=== PATIENT | male | born 1960 | race Caucasian/White ===

== ENCOUNTER 2019-03-14 08:24 | Emergency (ER) | payer OTHER, SELFPAY ==
[2019-03-14 08:35] VITALS: BP 103/61; PULSE 91; RESP 16; TEMP 37.2; O2SAT 96
--- NOTE | 2019-03-14 08:40 | ED.URI ---
HPI - URI/Sore Throat General Chief Complaint: Upper Respiratory Infection Stated Complaint: cold/flu symptoms Time Seen by Provider: 03/14/19 08:44 Source: patient and family Mode of arrival: ambulatory History of Present Illness HPI Narrative: Patient presents with sinus pressure congestion and nasal drainage. Patient denies any sore throat states he does have a nonproductive cough. Patient denies any fever no shortness of breath no chest pain. Patient states he is taking [place] plus for his symptoms.Patient reports his symptoms started 10 days ago. MD elicited complaint: cough, rhinorrhea, nasal congestion and sinus pain Related Data Home Medications Medication Instructions Recorded Confirmed aspirin 81 mg PO DAILY 03/14/19 03/14/19 lisinopril 5 mg PO DAILY 03/14/19 03/14/19 rosuvastatin [Crestor] 20 mg PO DAILY 03/14/19 03/14/19 sertraline [Zoloft] 25 mg PO DAILY 03/14/19 03/14/19 sertraline [Zoloft] 50 mg PO DAILY 03/14/19 03/14/19 Allergies Allergy/AdvReac Type Severity Reaction Status Date / Time No Known Allergies Allergy Unverified 08/18/18 20:03 Review of Systems Review of Systems: Narrative: CONSTITUTIONAL: Denies fever, chills, or sweats. EYES: Denies visual changes, redness, or discharge. ENT: Denies sore throat, or otalgia. Reports nasal congestion and nonproductive cough CARDIOVASCULAR: Denies chest pain, palpitations, or edema. RESPIRATORY: Denies cough or dyspnea. GASTROINTESTINAL: Denies abdominal pain, nausea, vomiting, or diarrhea. GENITOURINARY: Denies dysuria or hematuria. SKIN: Denies rash or itching. MUSCULOSKELETAL: Denies back pain, joint pain, or myalgia. NEUROLOGIC: Denies headache, numbness, or weakness. PSYCHIATRIC: Denies anxiety or depression. All systems reviewed & are unremarkable except as noted in HPI and below PMFSH Family History Family History Father Family history of glaucoma Hypertension Family history of lung cancer Mother Hypertension Asthma Family history of allergic disorder Social History Social History Alcohol intake: never Comments At time of signature, agree with nursing past medical, surgical, social and family history. There is no relevant family history pertinent to the presenting complaint Exam Narrative: Exam Narrative: GENERAL: Well-appearing, well-nourished, and in no acute distress. HEAD: Normocephalic, atraumatic. EYES: PERRLA and EOMI. ENT: no epistaxis. Mucous membranes moist. Moderate frontal sinus pressure moderate amount of postnasal drainage bilateral TM dullness mild pharyngeal drainage NECK: Supple. CHEST: Clear to auscultation. No respiratory distress. HEART: Regular rate and rhythm. No murmur heard. Normal peripheral pulses. ABDOMEN: Soft, nontender, nondistended, normal active bowel sounds. EXTREMITIES: Normal range of motion. No edema. SKIN: Warm, dry, no rash. NEURO: No focal deficits. Alert and oriented x3. Ameena Coma Scale Eye Opening: Spontaneous 4 Ameena Coma Scale Motor: Obeys Commands 6 Ameena Coma Scale Verbal: Oriented 5 Ameena Coma Scale Total 15 Course Vital Signs Vital signs: Vital Signs Temperature 37.2 C 03/14/19 08:35 Pulse Rate 91 03/14/19 08:35 Respiratory Rate 16 03/14/19 08:35 Blood Pressure 103/61 03/14/19 08:35 Pulse Oximetry 96 03/14/19 08:35 Temperature 37.2 C 03/14/19 08:35 Pulse Rate 91 03/14/19 08:35 Respiratory Rate 16 03/14/19 08:35 Blood Pressure 103/61 03/14/19 08:35 Pulse Oximetry 96 03/14/19 08:35 MDM - URI/Sore Throat Differential Diagnosis Differential diagnosis: Likely upper respiratory infection, otitis media, sinusitis, viral infection, bronchitis and pharyngitis Critical Care Time Critical Care Time Critical Care Time: No Discharge Plan Discharge Clinical Impression: Bronchitis Sinusitis Qualifiers: Si
== END 2019-03-14 08:54 | disposition home or self-care (01) ==
PROVIDERS: Emergency Provider Nurse Practitioner Family
DX: J40 Bronchitis, not specified as acute or chronic (principal); J01.10 Acute frontal sinusitis, unspecified; I10 Essential (primary) hypertension; E78.00 Pure hypercholesterolemia, unspecified; G47.30 Sleep apnea, unspecified
CPT/HCPCS: 99213; G0463

== ENCOUNTER 2020-03-18 16:32 | Emergency (ER) | payer OTHER, SELFPAY ==
--- NOTE | 2020-03-18 16:38 | ED.SKABFB ---
HPI - Skin/Abscess/Foreign Bdy General Chief complaint: Extremity Problem,Nontraumatic Stated complaint: Infected Finger Time Seen by Provider: 03/18/20 16:39 Source: patient and RN notes reviewed History of Present Illness HPI narrative: Patient is a 59-year-old male who presents the urgent care with complaints of swelling in pain to the third digit of the left hand. Patient states it started approximately 5 days ago and he has been soaking it in Epson salts. Patient states he is also been cleaning it with peroxide and using Neosporin. States that he does not bite his nails but did clip the cuticle recently. No other acute complaints. No acute distress noted. Patient aware of the plan of care. Some parts of this dictation were generated by voice recognition software and may contain typographical and/or grammatical inaccuracies. Related Data Home Medications Medication Instructions Recorded Confirmed aspirin 81 mg PO DAILY 03/14/19 03/14/19 lisinopril 5 mg PO DAILY 03/14/19 03/14/19 rosuvastatin [Crestor] 20 mg PO DAILY 03/14/19 03/14/19 sertraline [Zoloft] 50 mg PO DAILY 03/14/19 03/14/19 Allergies Allergy/AdvReac Type Severity Reaction Status Date / Time No Known Allergies Allergy Unverified 08/18/18 20:03 Review of Systems Review of Systems: Narrative: CONSTITUTIONAL: Denies fever, chills, or sweats. EYES: Denies visual changes, redness, or discharge. ENT: Denies rhinorrhea, congestion, sore throat, or otalgia. CARDIOVASCULAR: Denies chest pain, palpitations, or edema. RESPIRATORY: Denies cough or dyspnea. GASTROINTESTINAL: Denies abdominal pain, nausea, vomiting, or diarrhea. GENITOURINARY: Denies dysuria or hematuria. SKIN: Reports of pain and swelling to the nailbed of third digit even left hand MUSCULOSKELETAL: Denies back pain, joint pain, or myalgia. NEUROLOGIC: Denies headache, numbness, or weakness. All other systems reviewed are negative, except as documented in HPI. ON LICENSE OF [facility] Family History Family History Father Family history of glaucoma Hypertension Family history of lung cancer Mother Hypertension Asthma Family history of allergic disorder Social History Social History Alcohol intake: never Comments At the time of my signature, I reviewed and agree with the nursing past medical, surgical, social, and family history. There is no relevant family history pertinent to the patient complaint. Exam Narrative: Exam Narrative: GENERAL: This is a well-nourished, well-developed patient, in no apparent distress. HEAD: normocephalic, atraumatic. EYES: PERRL. Sclera clear/white. Vision is grossly intact. EARS: External ears normal NOSE: External nose normal with no obvious nasal discharge, nares without redness, no rhinorrhea. THROAT: Mucous membranes moist NECK: Neck supple SKIN: Fluid-filled paronychia noted to the radial aspect of the left third digit with mild surrounding erythema NEURO: awake, alert, and oriented to person, place and time. There were no obvious focal neurologic abnormalities. EXTREMITIES: No clubbing, cyanosis, or edema. Positive strong left radial pulse with capillary refill less than 2 seconds to left upper extremity. Course Vital Signs Vital signs: Vital Signs Temperature 99 F 03/18/20 16:48 Pulse Rate 73 03/18/20 16:48 Respiratory Rate 16 03/18/20 16:48 Blood Pressure 119/68 03/18/20 16:48 Pulse Oximetry 99 03/18/20 16:48 Temperature 99 F 03/18/20 16:48 Pulse Rate 73 03/18/20 16:48 Respiratory Rate 16 03/18/20 16:48 Blood Pressure 119/68 03/18/20 16:48 Pulse Oximetry 99 03/18/20 16:48 Reviewed Procedures Other Procedure Procedure 1: Other Procedure: Drained paronychia to the radial aspect of the left third digit. Cleansed with Betadine, 18-gauge needle used, technic care/normal saline post procedure. Thick white to yellow dr
[2020-03-18 16:48] VITALS: BP 119/68; PULSE 73; RESP 16; TEMP 37.2; O2SAT 99
== END 2020-03-18 17:10 | disposition home or self-care (01) ==
PROVIDERS: Emergency Provider Nurse Practitioner Family
DX: L03.012 Cellulitis of left finger (principal); Z86.73 Personal history of transient ischemic attack (TIA), and cerebral infarction without residual deficits; E78.00 Pure hypercholesterolemia, unspecified; I10 Essential (primary) hypertension; G47.30 Sleep apnea, unspecified; F41.9 Anxiety disorder, unspecified
CPT/HCPCS: 10060; 99213; G0463

== ENCOUNTER 2020-10-16 16:23 | Emergency (ER) | payer OTHER, SELFPAY ==
[2020-10-16 16:28] VITALS: BP 112/68; PULSE 97; RESP 16; TEMP 36.1; O2SAT 96
--- NOTE | 2020-10-16 16:30 | ED.WOUNDLAC ---
HPI - Wound/Laceration General Chief Complaint: Extremity Injury, Upper Stated Complaint: Injury to right Hand Time Seen by Provider: 10/16/20 16:30 Source: patient and RN notes reviewed History of Present Illness HPI narrative: Patient is a 60-year-old male who presents the urgent care with complaints of a puncture wound to the right hand. Patient states that he drilled a Fleming head drill bit into the web of his right hand. Patient states it just happened prior to arrival. Patient is not up-to-date on his tetanus shot. No other acute complaints. No acute distress noted. Patient had a plan of care. Some parts of this dictation were generated by voice recognition software and may contain typographical and/or grammatical inaccuracies. Related Data Home Medications Medication Instructions Recorded Confirmed aspirin 81 mg PO DAILY 03/14/19 03/14/19 lisinopril 5 mg PO DAILY 03/14/19 03/14/19 rosuvastatin [Crestor] 20 mg PO DAILY 03/14/19 03/14/19 sertraline [Zoloft] 50 mg PO DAILY 03/14/19 03/14/19 Allergies Allergy/AdvReac Type Severity Reaction Status Date / Time No Known Allergies Allergy Verified 10/16/20 16:35 Review of Systems Review of Systems: CONSTITUTIONAL: Denies fever, chills, or sweats. EYES: Denies visual changes, redness, or discharge. ENT: Denies rhinorrhea, congestion, sore throat, or otalgia. CARDIOVASCULAR: Denies chest pain, palpitations, or edema. RESPIRATORY: Denies cough or dyspnea. GASTROINTESTINAL: Denies abdominal pain, nausea, vomiting, or diarrhea. GENITOURINARY: Denies dysuria or hematuria. SKIN: Reports of a puncture wound to the right hand MUSCULOSKELETAL: Denies back pain, joint pain, or myalgia. NEUROLOGIC: Denies headache, numbness, or weakness. All other systems reviewed are negative, except as documented in HPI. [facility] Family History Family History Father Family history of glaucoma Hypertension Family history of lung cancer Mother Hypertension Asthma Family history of allergic disorder Social History Social History Alcohol intake: never Comments At the time of my signature, I reviewed and agree with the nursing past medical, surgical, social, and family history. There is no relevant family history pertinent to the patient complaint. Exam Narrative: GENERAL: This is a well-nourished, well-developed patient, in no apparent distress. HEAD: normocephalic, atraumatic. EYES: PERRL. Sclera clear/white. Vision is grossly intact. EARS: External ears normal NOSE: External nose normal with no obvious nasal discharge, nares without redness, no rhinorrhea. THROAT: Mucous membranes moist NECK: Neck supple CARDIOVASCULAR: Regular rate and rhythm without murmurs, gallops, or rubs. RESPIRATORY: Clear to auscultation. Breath sounds equal bilaterally. No wheezes, rales, or rhonchi. SKIN: Puncture wound noted to the thenar eminence of the right hand. Warm, intact with no suspicious lesions or rash, good texture and turgor. NEURO: awake, alert, and oriented to person, place and time. There were no obvious focal neurologic abnormalities. EXTREMITIES: No clubbing, cyanosis, or edema. Positive strong right radial pulse with capillary refill less than 2 seconds. Range of motion to right upper extremity within normal limits. Course Vital Signs Vital signs: Vital Signs Temperature 97 F L 10/16/20 16:28 Pulse Rate 97 10/16/20 16:28 Respiratory Rate 16 10/16/20 16:28 Blood Pressure 112/68 10/16/20 16:28 Pulse Oximetry 96 10/16/20 16:28 Temperature 97 F L 10/16/20 16:28 Pulse Rate 97 10/16/20 16:28 Respiratory Rate 16 10/16/20 16:28 Blood Pressure 112/68 10/16/20 16:28 Pulse Oximetry 96 10/16/20 16:28 Reviewed MDM - Wound/Laceration MDM Narrative Medical decision making narrative: You are now up-to-date on your tetanus shot. Make sure to
[2020-10-16] MEDS: TETANUS,DIPHTHERIA,AC PERTUSSIS ADULT (0.5 ML) BOOSTRIX IM (16:40)
== END 2020-10-16 17:00 | disposition home or self-care (01) ==
PROVIDERS: Emergency Provider Nurse Practitioner Family
DX: S61.431A Puncture wound without foreign body of right hand, initial encounter (principal); W29.8XXA Contact with other powered hand tools and household machinery, initial encounter; Z23 Encounter for immunization; Z86.73 Personal history of transient ischemic attack (TIA), and cerebral infarction without residual deficits; I10 Essential (primary) hypertension; G47.30 Sleep apnea, unspecified
CPT/HCPCS: 90471; 90715; 99212; G0463

== ENCOUNTER 2022-06-15 17:24 | Emergency (ER) | payer OTHER, SELFPAY ==
[2022-06-15 17:29] VITALS: BP 128/68; PULSE 75; RESP 16; TEMP 37.1; O2SAT 97
--- NOTE | 2022-06-15 18:01 | ED.URI ---
HPI - URI/Sore Throat General Chief Complaint: Upper Respiratory Infection Stated Complaint: cold cough Time Seen by Provider: 06/15/22 18:00 Source: patient and RN notes reviewed Mode of arrival: ambulatory Limitations: no limitations History of Present Illness HPI Narrative: 62-year-old male presents with concern for cough that is persistent and he has coughing fits. He reports symptoms started on Monday. He reports some nasal congestion and rhinorrhea. He denies fever, aches, chills, sweats MD elicited complaint: cough Related Data Home Medications Medication Instructions Recorded Confirmed aspirin 81 mg chewable tablet 81 mg PO DAILY 03/14/19 06/15/22 lisinopril 5 mg tablet 5 mg PO DAILY 03/14/19 06/15/22 sertraline 50 mg tablet (Zoloft) 50 mg PO DAILY 03/14/19 06/15/22 levothyroxine 125 mcg tablet 125 mcg PO DAILY 06/15/22 06/15/22 (Synthroid) rosuvastatin 10 mg tablet 10 mg PO DAILY 06/15/22 06/15/22 Allergies Allergy/AdvReac Type Severity Reaction Status Date / Time No Known Allergies Allergy Verified 06/15/22 17:44 Review of Systems Review of Systems: CONSTITUTIONAL: Denies malaise, chills, sweats, or fever. EYES: Denies visual changes, redness, or discharge. ENT: Reports rhinorrhea, congestion. Denies sinus pain, otalgia and sore throat. CARDIOVASCULAR: Denies chest pain, palpitations, or edema. RESPIRATORY: Reports persistent cough. Denies dyspnea. GASTROINTESTINAL: Denies abdominal pain, nausea, vomiting, diarrhea SKIN: Denies rash or itching. MUSCULOSKELETAL: Denies myalgia. NEUROLOGIC: Denies headache. All systems reviewed & are unremarkable except as noted in HPI and below PMFSH Family History Family History Father Family history of glaucoma Hypertension Family history of lung cancer Mother Hypertension Asthma Family history of allergic disorder Social History Social History Alcohol intake: never Comments At time of signature, agree with nursing past medical, surgical, social and family history. There is no relevant family history pertinent to the presenting complaint Exam Narrative: GENERAL: Well-appearing, well-nourished, and in no acute distress. HEAD: Normocephalic EYES: PERRLA, conjunctivae clear ENT: Nares clear, turbinates edematous and erythematous. Mucous membranes moist. TM pearly paredes with sharp light reflex bilaterally; no tragal tenderness. Oropharynx not erythematous without lesions. Tonsils not enlarged and without exudate, no drooling, no hoarseness, no trismus, uvula midline. NECK: Supple. No lymphadenopathy CHEST: Scattered rhonchi, otherwise clear to auscultation, breath sounds equal. No wheezing, rales, or stridor. No respiratory distress, speaks in full sentences. Harsh cough noted HEART: Regular rate and rhythm. No murmur heard. SKIN: Warm, dry, no rash. NEURO: Alert and oriented x3. PSYCH: Normal mood and affect Course Course Emergency Course: Patient is aware of diagnosis, understands and agrees to treatment plan. Anticipatory guidance given. Patient agrees to follow-up as directed and is aware of reasons to seek care at the emergency department. Portions of this record may have been created with voice recognition software Level of Care: Express Care Visit Vital Signs Vital signs: Vital Signs Temperature 98.7 F 06/15/22 17:29 Pulse Rate 75 06/15/22 17:29 Respiratory Rate 16 06/15/22 17:29 Blood Pressure 128/68 06/15/22 17:29 Pulse Oximetry 97 06/15/22 17:29 Oxygen Delivery Room Air 06/15/22 17:29 Temperature 98.7 F 06/15/22 17:29 Pulse Rate 75 06/15/22 17:29 Respiratory Rate 16 06/15/22 17:29 Blood Pressure 128/68 06/15/22 17:29 Pulse Oximetry 97 06/15/22 17:29 Oxygen Delivery Room Air 06/15/22 17:29 Reviewed. MDM - URI/Sore Throat MDM Narrative Medical decision making jerzy
== END 2022-06-15 18:15 | disposition home or self-care (01) ==
PROVIDERS: Emergency Provider Nurse Practitioner
DX: J06.9 Acute upper respiratory infection, unspecified (principal); E78.00 Pure hypercholesterolemia, unspecified; I10 Essential (primary) hypertension; G47.30 Sleep apnea, unspecified; Z86.73 Personal history of transient ischemic attack (TIA), and cerebral infarction without residual deficits; F41.9 Anxiety disorder, unspecified
CPT/HCPCS: 99213; G0463

== ENCOUNTER 2024-02-19 12:17 | Emergency (ER) | payer OTHER, SELFPAY ==
[2024-02-19 12:22] VITALS: BP 131/74; PULSE 77; RESP 20; TEMP 36.7; O2SAT 100
--- NOTE | 2024-02-19 12:30 | ED.URI ---
HPI - URI/Sore Throat General Chief Complaint: Upper Respiratory Infection Stated Complaint: cold symptoms Time Seen by Provider: 02/19/24 12:30 Source: patient and RN notes reviewed Mode of arrival: ambulatory Limitations: no limitations History of Present Illness HPI Narrative: 63-year-old male presented for complaint of nasal congestion, drainage, and cough. Onset 3 days. endorses subjective fever, chills body aches yesterday. Taking [place] for symptoms. Denies shortness of breath, wheezing nausea, vomiting or lethargy MD elicited complaint: cough Related Data Home Medications ?Medication ?Instructions ?Recorded ?Confirmed ?Last Taken ?Type aspirin 81 mg chewable tablet 81 mg PO DAILY 03/14/19 06/15/22 Unknown History lisinopril 5 mg tablet 5 mg PO DAILY 03/14/19 06/15/22 Unknown History sertraline 50 mg tablet (Zoloft) 50 mg PO DAILY 03/14/19 06/15/22 Unknown History levothyroxine 125 mcg tablet 125 mcg PO DAILY 06/15/22 06/15/22 Unknown History (Synthroid) rosuvastatin 10 mg tablet 10 mg PO DAILY 06/15/22 06/15/22 Unknown History Allergies Allergy/AdvReac Type Severity Reaction Status Date / Time No Known Allergies Allergy Verified 02/19/24 12:26 Review of Systems Review of Systems: CONSTITUTIONAL: Endorses malaise, chills, sweats, fever EYES: Denies visual changes, redness, or discharge ENT: Reports rhinorrhea, congestion, sinus pain, denies otalgia, sore throat CARDIOVASCULAR: Denies chest pain, palpitations, edema RESPIRATORY: Reports cough, post nasal drainage. Denies dyspnea GASTROINTESTINAL: Denies abdominal pain, nausea, vomiting, diarrhea SKIN: Denies rash MUSCULOSKELETAL: Endorses myalgia PMFSH Past Medical History Medical History (Updated 02/19/24 @ 12:40 by Juani Tam APRN) CVA (cerebral vascular accident) Family History Family History Father Family history of glaucoma Hypertension Family history of lung cancer Mother Hypertension Asthma Family history of allergic disorder Social History Social History (Updated 02/19/24 @ 12:36 by Juani Tam APRN) Smoking status: Former smoker Alcohol intake: never Exam Narrative: GENERAL: mildly Ill-appearing, nontoxic no acute distress. EYES: PERRLA, conjunctivae clear ENT: Mucous membranes moist. TM pearly paredes with dull light reflex bilaterally; no tragal tenderness. Oropharynx not erythematous without lesions or exudate, no drooling, no hoarseness, no trismus, uvula midline. No tripod positioning, muffled voice, soft palate or pharyngeal wall bulging NECK: Supple. No lymphadenopathy CHEST: Clear to auscultation, breath sounds equal. No wheezing, rhonchi, rales, or stridor. No respiratory distress, speaks in full sentences. HEART: Regular rate and rhythm. No murmur heard. SKIN: Warm, dry NEURO: Alert and oriented x3. PSYCH: Normal mood and affect Course Course Emergency Course: Patient is aware of diagnosis, understands and agrees to treatment plan. Anticipatory guidance given. Patient agrees to follow-up as directed and is aware of reasons to seek care at the emergency department. Portions of this record may have been created with voice recognition software Level of Care: Express Care Visit Vital Signs Vital signs: Vital Signs Temperature 98.0 F 02/19/24 12:22 Pulse Rate 77 02/19/24 12:22 Respiratory Rate 20 02/19/24 12:22 Blood Pressure 131/74 02/19/24 12:22 Pulse Oximetry 100 02/19/24 12:22 Oxygen Delivery Room Air 02/19/24 12:22 Temperature 98.0 F 02/19/24 12:22 Pulse Rate 77 02/19/24 12:22 Respiratory Rate 20 02/19/24 12:22 Blood Pressure 131/74 02/19/24 12:22 Pulse Oximetry 100 02/19/24 12:22 Oxygen Delivery Room Air 02/19/24 12:22 reviewed MDM - URI/Sore Throat MDM Narrative Medical decision making narrative: Discussed physical exam findings, negative flu and COVID reviewed with patient. Advised supportive measures and signs/symptoms to go to the ER. Pt is appropriate for outpt treatment and f/u. Differential Diagnosis Differential diagnosis: Likely upper respiratory infection, sinusitis and viral infection Discharge Plan Discharge Clinical Impression: Upper respiratory infection Patient Disposition: Home, Self-Care Condition: Stable Instructions: Antibiotic Form, Upper Respiratory Infection (ED) Additional Instructions: flu and COVID negative if symptoms are due to a viral illness, it is not treated with antibiotics. Viral symptoms can be present for up to 10-14 days. Recommendations: Flonase spray and Zyrtec for sinus congestion Cough syrup may cause drowsiness; avoid driving or take it at night time. Coricidin HBP if you have hypertension Tylenol every 8 hours as needed for pain/fever Soft foods, cool liquids, warm tea. Gargle with warm saltwater twice a day. Chloraseptic spray and throat lozenges. Rest and stay hydrated. --Follow up with your PCP --Go to the ER immediately if you cannot swallow your saliva, trouble breathing/wheezing, throat swelling, pain is persistent and severe Patient Language: Zambian Prescriptions: No Action rosuvastatin 10 mg tablet 10 mg PO DAILY levothyroxine [Synthroid] 125 mcg tablet 125 mcg PO DAILY promethazine-DM 6.25-15 mg/5 mL syrup 5 ml PO Q4-6H PRN (Reason: cough) Qty: 120 0RF azithromycin [Zithromax Z-Gerald] 250 mg tablet See Rx Instructions .ROUTE .COMPLEX Qty: 6 0RF Rx Instructions: take 500 mg today (day 1), then 250 mg for 4 days (days 2-5) methylprednisolone [Medrol (Gerald)] 4 mg tablets,dose pack See Rx Instructions .ROUTE .COMPLEX Qty: 21 0RF Rx Instructions: orally per package directions lisinopril 5 mg Tablet 5 mg PO DAILY sertraline [Zoloft] 50 mg Tablet 50 mg PO DAILY aspirin 81 mg Tablet,Chewable 81 mg PO DAILY Follow-up/Referrals: PHYSICIAN NOT ON STAFF,NONSTAFF [Primary Care Provider] - Time of Disposition: 12:41
[2024-02-19 12:46] LABS: EDCOVIDSCREEN Negative (Negative); EDINFLUASCREEN Negative (Negative); EDINFLUBSCREEN Negative (Negative)
== END 2024-02-19 12:45 | disposition home or self-care (01) ==
PROVIDERS: Emergency Provider Nurse Practitioner Family
DX: J06.9 Acute upper respiratory infection, unspecified (principal); Z20.822 Contact with and (suspected) exposure to COVID-19; Z86.73 Personal history of transient ischemic attack (TIA), and cerebral infarction without residual deficits
CPT/HCPCS: 87426; 87804; 99212; G0463

== ENCOUNTER 2024-08-10 18:22 | Emergency (ER) | payer OTHER, SELFPAY ==
--- OUTSIDE RECORDS SUMMARY | 2024-08-10 18:26 | XMS_ITS | Clinical Summary ---
Author Organization [facility] Address [address] [place] [address] Care Team Providers Care Asbestos Worker Name Role Phone Franklyn BARROW MD, Jordan Johnson Primary Care Provider Source Comments [facility],non-owned Affiliates and Associated Physician Practices is amultiple site organization consisting of ambulatory clinics and hospital sitesin [place], [place], [place] and [place]. This disclosure is being madepursuant to the Care Everywhere program and may not contain all information available regarding this patient. Last updated 17.[facility] Social History Tobacco Use Types Packs/Day Years Used Date Smoking Tobacco: Never Assessed Sex and Gender Information Value Date Recorded Sex Assigned at Not on file Legal Sex Male 1:40 PM CDT Gender Identity Not on file Sexual Orientation Not on file Plan of Treatment Health Maintenance Due Date Last Done Comments COLOGUARD (AGES 45-75) - COL ON CA SCREENING 1962 COLON MONITORING 1962 COLONOSCOPY - COLON CA SCREENING 1962 CT COLONOGRAPHY - COLON CA SCREENING 1962 Colorectal Cancer Screening 1962 FIT - COLON CA SCREENING 1962 FLEX SIG - COLON CA SCREENING 1962 LIPID TESTING 1962 HIV SCREENING 1977 HEPATITIS C SCREENING 06/02/1980 DTAP/TDAP/TD VACCINES (1 - Tdap) 1981 PNEUMOCOCCAL VACCINE 50+ (1 of 1 - PCV) 2012 ZOSTER VACCINE (1 of 2) 2012 COVID-19 VACCINE (1 - 2023-2 5 season) 2023 DEPRESSION SCREENING 02/07/2024 INFLUENZA VACCINE (#1) 2024 Respiratory Syncytial Virus (RSV) Vaccine Pt: or over 60 yrs (1 - 1-dose 75+ series) 2037 HEPATITIS B VACCINE Aged Out No longe r eligible based on patient's age to complete this topic HIB VACCINE Aged Out No longer eligi ble based on patient's age to complete this topic HPV VACCINE Aged Out No longer eligi ble based on patient's age to complete this topic MENINGOCOCCAL (Group B) VACC INE SHARED DECISION-MAKING Aged Out No longer eligibl e based on patient's age to complete this topic MENINGOCOCCAL GROUPS A/C/Y/W VACCINE Aged Out No longer eligible b ased on patient's age to complete this topic Insurance Care Teams Asbestos Worker Relationship Specialty Start Date End Date Jordan Estes II, MD PCP - General Family Medicine 05/03/18
--- OUTSIDE RECORDS SUMMARY | 2024-08-10 18:26 | XMS_ITS ---
Author Organization [facility] Address [address] [place], [place] [id number] Care Team Providers Care Warehouse Receiver Name Role Phone LISA MARTINEZ Unavailable [phone] Answer, Declined Unavailable Unavailable RIZWANA GRIMM Unavailable [phone] REASON FOR VISIT toenail fungus Encounters Encounter Location Date Provider Diagnosis [facility] [address] [place], [place] [id number] 01/23/2024 RIZWANA GRIMM Unspecified atherosclerosis of algaaciq arteries of extremities, bilateral legs I70.203 ; Tinea unguium B35.1 ; Other hammer toe(s) (acquired), right foot M20.41 ; Other hammer toe(s) (acquired), left foot M20.42 ; Pain in right toe(s) M79.674 and Pain in left toe(s) M79.675 Assessments Encounter Date Diagnosis (ICD Code) Assessment Notes Treatment Notes Treatment Clinical Notes Section Notes 01/23/2024 Unspecified atherosclerosis of algaaciq arteries of extremities, bilateral legs (ICD-10 - I70.203) Patient educated on risks and aggravating factors of PVD, including conservative treatment options such as a diet and exercise regimen to aid in slowing progression of vascular disease 01/23/2024 Tinea unguium (ICD-10 - B35.1) Aseptic debridement of elongated thickened nails x 10 using sterile nippers, nails were debrided in length and thickness by 30% utilizing a nail nipper without incident. The patient was educated regarding all treatment options that include topical and oral antifungal treatments. I discussed the options of taking a sample of the nail to confirm diagnosis. Nail clippings were not sent for pathology analysis. The patient was educated why and how the fungal infection evolved in their feet and the patient was given information regarding how to prevent further infection. The patient was told to keep feet dry and change socks. The patient was told to be careful with old shoes and excessive sweating. The patient was educated regarding both OTC and prescription treatments. 01/23/2024 Other hammer toe(s) (acquired), right foot (ICD-10 - M20.41) The patient was educated regarding how to mechanically stabilize their deformity. The patient was given education about shoe recommendations specific for the condition. The patient was educated about custom orthotics and how appropriate shoes and orthotics can prevent further worsening of the deformity. The patient was educated about how bad shoe habits can worsen the condition. NSAIDS, P.T., injections and other conservative treatments were discussed. Both surgical and non surgical treatments were discussed, but conservative options were emphasized. 01/23/2024 Other hammer toe(s) (acquired), left foot (ICD-10 - M20.42) 01/23/2024 Pain in right toe(s) (ICD-10 - M79.674) 01/23/2024 Pain in left toe(s) (ICD-10 - M79.675) Plan Of Treatment Treatment Notes Assessment Notes Unspecified atherosclerosis of algaaciq arteries of extremities, bilateral legs Patient educated on risks and aggravating factors of PVD, including conservative treatment options such as a diet and exercise regimen to aid in slowing progression of vascular disease Tinea unguium Aseptic debridement of elongated thickened nails x 10 using sterile nippers, nails were debrided in length and thickness by 30% utilizing a nail nipper without incident. The patient was educated regarding all treatment options that include topical and oral antifungal treatments. I discussed the options of taking a sample of the nail to confirm diagnosis. Nail clippings were not sent for pathology analysis. The patient was educated why and how the fungal infection evolved in their feet and the patient was given information regarding how to prevent further infection. The patient was told to keep feet dry and change socks. The patient was told to be careful with old shoes and excessive sweating. The patient was educated regarding both OTC and prescription treatments. Other hammer toe(s) (acquired), right fo ot The patient was educated regarding how to mechanically stabilize their deformity. The patient was given education about shoe recommendations specific for the condition. The patient was educated about custom orthotics and how appropriate shoes and orthotics can prevent further worsening of the deformity. The patient was educated about how bad shoe habits can worsen the condition. NSAIDS, P.T., injections and other conservative treatments were discussed. Both surgical and non surgical treatments were discussed, but conservative options were emphasized. Next Appt Details Follow Up: 3 Months, Reason: Provider Name:LISA MARTINEZ, 09:30:00 AM, [address] [facility], [facility] [address], [place], [place], [id number], Progress Notes * ALTON CR DDOB: [birth year] (64 yo M)Acc No.[id number]:01/23/2024 Patient: ALTON CALDERON Provider: Johnathon GRIMM :1960 A ge:63 Y S ex:Male Date:01/23/2024 Address:[address] [place] [address] Subjective: * Chief Complaints: * 1 . Toenail fungus. * HPI: H PI: Follow Up Visit P atient presents for follow up visit for fungal nails. , Patient states their problem is starting to come back. , MA: rui. * ROS: G eneral / Constitutional: Patient denies w eakness. R espiratory: Patient denies c hronic cough, shortness of breath, sputum production. C ardiovascular: Patient denies c hest pain, history of IA, irregular heartbeat. M usculoskeletal: Patient denies a rthritis, joint stiffness. ? P eripheral Vascular: Patient denies b lanching of skin, cold extremities, decreased sensation in extremities. S kin: Patient complains of n ail changes, fungal nails. ? N eurologic: Patient denies d izziness, gait abnormality, headache. * Medical History: Objective: * Vitals: * Examination: P hysical Examination: V ascular: Dorsalis Pedis pulse noted at 1/4 right foot and 1/4 left foot and Posterior Tibial pulse noted at 1/4 right foot and 1/4 left foot, Capillary refill times noted to be less than three seconds x ten, Temperature gradient noted to be warm to cool to bilateral foot, pedal hair present to bilateral foot and no varicosities are noted Dermatologic: there are no open lesions, no signs of active clinical infection, no erythema noted, no ecchymoses, nails are elongated thickened and dystrophic with subungual debris x ten Musculoskeletal: there is pain to palpation onto nail plate x ten, no calf pain noted bilaterally, arch height noted at 2/5 non-weight bearing bilaterally, first metatarsophalangeal joint range of motion 30 deg non-weight bearing bilaterally, flexible fifth digit hammer toe deformity noted to bilateral foot reducible with kelikian push up test Neurology: protective sensation intact to light touch bilateral digits one through five, vibratory sensation intact to first metatarsophalangeal joint bilaterally. Assessment: * Assessment: 1. T inea unguium - B35.1 (Primary) 2 . U nspecified atherosclerosis of algaaciq arteries of extremities, bilateral legs - I70.203 3 . O ther hammer toe(s) (acquired), right foot - M20.41 4 . O ther hammer toe(s) (acquired), left foot - M20.42 5 . P ain in right toe(s) - M79.674 6 . P ain in left toe(s) - M79.675 Plan: * Treatment: 2. U nspecified atherosclerosis of algaaciq arteries of extremities, bilateral legs Notes: Patient educated on risks and aggravating factors of PVD, including conservative treatment options such as a diet and exercise regimen to aid in slowing progression of vascular disease ? 3. O ther hammer toe(s) (acquired), right foot Notes: The patient was educated regarding how to mechanically stabilize their deformity. The patient was given education about shoe recommendations specific for the condition. The patient was educated about custom orthotics and how appropriate shoes and orthotics can prevent further worsening of the deformity. The patient was educated about how bad shoe habits can worsen the condition. NSAIDS, P.T., injections and other conservative treatments were discussed. Both surgical and non surgical treatments were discussed, but conservative options were emphasized. * Follow Up: 3 Months * Billing Information: * Visit Code: 18569 Office Visit, Est Pt., Level 3. * Procedure Codes: * Electronic signature of CRUZ GRIMM DPM on 08/10/2024 at 06:26 PM CDT Sign off status: Pending * Provider: Johnathon GRIMM Date: 1 03/25/2023 Generated for Adarsh Torre on: 0 08/10/2024 06:26 PM CDT History and Physical Notes * HPI (History of Present Illness) Category Sub-Category Detail Notes Category Not es HPI Follow Up Visit Patient presents for follow up visit for fungal nails. , Patient states their problem is starting to come back. , MA: beg Examination Category Sub-Category Detail Notes Category Not es Physical Examination Vascular: Dorsalis Pedis pulse noted at 1/4 right foot and 1/4 left foot and Posterior Tibial pulse noted at 1/4 right foot and 1/4 left foot, Capillary refill times noted to be less than three seconds x ten, Temperature gradient noted to be warm to cool to bilateral foot, pedal hair present to bilateral foot and no varicosities are noted Dermatologic: there are no open lesions, no signs of active clinical infection, no erythema noted, no ecchymoses, nails are elongated thickened and dystrophic with subungual debris x ten Musculoskeletal: there is pain to palpation onto nail plate x ten, no calf pain noted bilaterally, arch height noted at 2/5 non-weight bearing bilaterally, first metatarsophalangeal joint range of motion 30 deg non-weight bearing bilaterally, flexible fifth digit hammer toe deformity noted to bilateral foot reducible with kelikian push up test Neurology: protective sensation intact to light touch bilateral digits one through five, vibratory sensation intact to first metatarsophalangeal joint bilaterally
--- OUTSIDE RECORDS SUMMARY | 2024-08-10 18:26 | XMS_ITS | Patient Health Record ---
Author Organization [facility] Address [address] [place], [place] [id number] Care Team Providers Care Hay Stacker Name Role Phone LISA MARTINEZ Unavailable [phone] Answer, Declined Unavailable Unavailable RIZWANA GRIMM Unavailable [phone] Allergies No Known Allergies Reason For Referral Reason [facility] (Establishe d Patient) 01/22/2024 REF EXT +3 ( 6 TOTAL ) / PROVIDER UPDATED TO [facility] 02/20/2024 THE REFERRAL IS UNDER [facility] PER [facility] REFERRALS END 08/05/2024. K[facility] Diagnosis 1 Tinea unguium (B35.1 ) Referred Organization [facility] Referred Provider LISA MARTINEZ Referred Address [address],[place], [id number], Referred Provider Specialty Podiatry Referral Priority Routine Vital Signs Height-cm 172.72 cm 07/24/2024 Weight-kg 76.66 kg 07/24/2024 Height 68.00 in 07/24/2024 Weight 169 lbs 07/24/2024 BMI 25.69 kg/m2 07/24/2024 Encounters Encounter Location Date Provider Diagnosis [facility] [address] [place], [place] [id number] 01/23/2024 RIZWANA GRIMM Unspecified atherosclerosis of chicken [place] arteries of extremities, bilateral legs I70.203 ; Tinea unguium B35.1 ; Other hammer toe(s) (acquired), right foot M20.41 ; Other hammer toe(s) (acquired), left foot M20.42 ; Pain in right toe(s) M79.674 and Pain in left toe(s) M79.675 [facility] [place] [address] [facility] [address] [place], [place] [id number] 07/24/2024 LISA SNOOK Tinea unguium B35.1 ; Pain in right toe(s) M79.674 ; Pain in left toe(s) M79.675 and Type 2 diabetes mellitus with other diabetic neurological complication E11.49 [facility] [place] [address] [facility] [address] [place], [place] [id number] 04/23/2024 LISA SNOOK Tinea unguium B35.1 ; Type 2 diabetes mellitus without complications E11.9 ; Pain in right toe(s) M79.674 and Pain in left toe(s) M79.675 Assessments Encounter Date Diagnosis (ICD Code) Assessment Notes Treatment Notes Treatment Clinical Notes Section Notes 01/23/2024 Tinea unguium (ICD-10 - B35.1) Aseptic [...] regarding both OTC and prescription treatments. 01/23/2024 Unspecified atherosclerosis of [place] arteries of extremities, bilateral legs (ICD-10 - I70.203) Patient educated on risks and aggravating factors of PVD, including conservative treatment options such as a diet and exercise regimen to aid in slowing progression of vascular disease 04/23/2024 Tinea unguium (ICD-10 - B35.1) FUNGAL TOENAILS: Discussed various treatment options for fungal toenails including debridement, topical antifungals, oral antifungals, toenail avulsion, or toenail matrixectomy. Fungal Toenails, Continue Treatment: The patient will continue using the topical antifungal medication. I explained that it can take 9-12 months for a toenail to grow out and notice change. NAIL DEBRIDEMENT: Nails 1-5 Bilateral were debrided extensively with nail nippers and emery board, reducing length and girth to pink healthy tissue with any subungual debris and necrotic tissue removed 04/23/2024 Type 2 diabetes mellitus without complications (ICD-10 - E11.9) 07/24/2024 Tinea unguium (ICD-10 - B35.1) NAIL DEBRIDEMENT: Nails 1-5 Bilateral were debrided extensively with nail nippers and emery board, reducing length and girth to pink healthy tissue with any subungual debris and necrotic tissue removed 07/24/2024 Pain in right toe(s) (ICD-10 - M79.674) 07/24/2024 Pain in left toe(s) (ICD-10 - M79.675) 04/23/2024 Pain in right toe(s) (ICD-10 - M79.674) 01/23/2024 Other hammer toe(s) (acquired), right foot [...] toe(s) (acquired), left foot (ICD-10 - M20.42) 04/23/2024 Pain in left toe(s) (ICD-10 - M79.675) 07/24/2024 Type 2 diabetes mellitus with other diabetic neurological complication (ICD-10 - E11.49) 01/23/2024 Pain in right toe(s) (ICD-10 - M79.674) 01/23/2024 Pain in left toe(s) (ICD-10 - M79.675) 07/24/2024 Other Diabetic Foot Care: The patient was educated on diabetes and the lower extremity. The patient was instructed to check his feet daily to report any problems or signs of infection immediately. The patient was provided written information on Diabetic Foot Care as well as the Amputation Prevention Guide. Plan Of Treatment Next Appt Details Provider Name:LISA MARTINEZ, 09:30:00 AM, [address] [facility], [place], [place], [id number], Insurance Providers Payer Name Payer Address Payer Phone Subscriber Number Group Number Insured Name Patient Relationship to Insured Coverage Start Date Coverage End Date [facility] [place] [address] [place] [id number] AL[place] CR Self - patient is the insured
--- OUTSIDE RECORDS SUMMARY | 2024-08-10 18:26 | XMS_ITS | Clinical Summary ---
Author Organization [facility] Address [address] [place] [address] Care Team Providers Care Software Tools Engineer Name Role Phone Franklyn BARROW MD, Jordan Johnson Primary Care Provider Encounters Date Type Department Care Team Description 07/24/2024 Scan [facility] Scanned, Doc Med Group from Last 3 Months Social History Tobacco Use Types Packs/Day Years Used Date Smoking Tobacco: Never Assessed Sex and Gender Information Value Date Recorded Sex Assigned at Not on file Legal Sex Male 4:31 PM CDT Gender Identity Not on file Sexual Orientation Not on file Plan of Treatment Health Maintenance Due Date Last Done Comments Colorectal Cancer Screening Colonoscopy (10 Years) 1960 Annual Physical 1965 Hepatitis C 1980 DTaP, Tdap and Td Vaccines ( 1 - Tdap) 1981 Pneumococcal Vaccine: 50+ Ye ars (1 of 1 - PCV) 2012 Zoster Vaccines (1 of 2) 2012 COVID-19 Vaccine ( - 2023-2 5 season) 2023 PHQ-2 (Physician [place]) 02/07/2024 RSV Immunization or 60+ Years (1 - 1-dose 75+ series) 2037 Meningococcal B Vaccine Aged Out No l onger eligible based on patient's age to complete this topic Meningococcal Vaccine Aged Out No brenden joseph eligible based on patient's age to complete this topic RSV Immunizations Under 20 Months Aged Out No longer eligible based on patient's age to complete this topic Insurance Care Teams Software Tools Engineer Relationship Specialty Start Date End Date Jordan Estes II, MD PCP - General FAMILY PRACTICE 05/18/18
--- OUTSIDE RECORDS SUMMARY | 2024-08-10 18:26 | XMS_ITS ---
Author Organization [facility] Address [address] [place], [place] [address] Care Team Providers Care Drawbridge Tender Name Role Phone LISA MARTINEZ Unavailable [phone] Answer, Declined Unavailable Unavailable Allergies No Known Allergies REASON FOR VISIT Patient presents for at-risk foot care . The patient has painful toenails that are causing difficulty with ambulation and shoegear. The onset is gradual. The patient has diabetes mellitus Vital Signs Height 68.00 in 07/24/2024 Weight 169 lbs 07/24/2024 BMI 25.69 kg/m2 07/24/2024 Height-cm 172.72 cm 07/24/2024 Weight-kg 76.66 kg 07/24/2024 Encounters Encounter Location Date Provider Diagnosis [facility] [place] [address] [facility] [address] [place], [place] [id number] 07/24/2024 LISA MARTINEZ Tinea unguium B35.1 ; Pain in right toe(s) M79.674 ; Pain in left toe(s) M79.675 and Type 2 diabetes mellitus with other diabetic neurological complication E11.49 Assessments Encounter Date Diagnosis (ICD Code) Assessment Notes Treatment Notes Treatment Clinical Notes Section Notes 07/24/2024 Tinea unguium (ICD-10 - B35.1) NAIL [...] other diabetic neurological complication (ICD-10 - E11.49) 07/24/2024 Other Diabetic Foot Care: The patient was educated on diabetes and the lower extremity. The patient was instructed to check his feet daily to report any problems or signs of infection immediately. The patient was provided written information on Diabetic Foot Care as well as the Amputation Prevention Guide. Plan Of Treatment Treatment Notes Assessment Notes Tinea unguium NAIL DEBRIDEMENT: Na ils 1-5 Bilateral were debrided extensively with nail nippers and emery board, reducing length and girth to pink healthy tissue with any subungual debris and necrotic tissue removed Other Diabetic Foot Care: The patient was educated on diabetes and the lower extremity. The patient was instructed to check his feet daily to report any problems or signs of infection immediately. The patient was provided written information on Diabetic Foot Care as well as the Amputation Prevention Guide. Next Appt Details Follow Up: 10 - 12 weeks, Re ason: At-Risk Foot care, sooner if problems develop. Provider Name:LISA MARTINEZ, 09:30:00 AM, [address] [facility], [facility] [address], [place], [id number], Progress Notes * AL[place] CR DDOB: [birth year] (64 yo M)Acc No.[id number]:07/24/2024 Patient: ALTON CALDERON Provider: Ellis Martinez DPM :1960 A ge:64 Y S ex:Male Date:07/24/2024 Address:[address] [place], [place] [id number] Subjective: * Chief Complaints: * 1 . Patient presents for at-risk foot care . The patient has painful toenails that are causing difficulty with ambulation and shoegear. The onset is gradual. The patient has diabetes mellitus. * HPI: H PI: General care P jeremiemohamud presents to the office for diabetic foot care. Patient states that their nails are thickened, elongated and painful. Patient states that it is aggravated by shoe gear. Onset is gradual., Patient is taking prescription blood thinners., Date last seen by primary doctor at [facility] was April 2024., Initials LB. * ROS: G eneral / Constitutional: Patient denies c hills, fever, weakness, night sweats. M usculoskeletal: Patient denies c hildhood foot problems, weakness. ? P eripheral Vascular: Patient denies u lceration of feet, cold extremities. ? S kin: Patient denies u lcerations, discoloration. P atient complains of f ungal nails, nail changes. N eurologic: Patient denies b alance difficulty, confusion, difficulty speaking, dizziness. * Medical History: M edical History Verified. * Family History: N o Family History documented.. * Medications: N one * Allergies: N .K.D.A. Objective: * Vitals: W t:169lbs, Wt-k.66 kg, Ht: 68.00 in, Ht-cm: 172.72 cm, BMI:25.69Index, Body Surface Area: 1.92. * Examination: C onstitutional: Constitutional T he patient is awake, alert, well developed, well groomed and well nourished. D ermatologic: Skin findings: S kin is warm, dry, supple with no breaks in the skin. Nail pathology: N ails 1-5 bilateral are elongated, thick, discolored, and dystrophic with subungual debris. They are painful to palpation. ? V ascular: Dorsalis pedis pulse: 2 /4, bilateral. Posterior tibial pulse: 2 /4, bilateral. Capillary refill: l ess than 3 seconds. Edema: N o edema, bilateral. N eurologic: Gross sensation G ross sensation is diminished to light touch. M usculoskeletal: Muscle Strength M uscle strength is 5/5 in regards to dorsiflexion, plantarflexion, inversion, and eversion in bilateral lower extremities. ? Assessment: * Assessment: 1. T inea unguium - B35.1 (Primary) 2 . P ain in right toe(s) - M79.674? 3. P ain in left toe(s) - M79.675 4 . T ype 2 diabetes mellitus with other diabetic neurological complication - E11.49 Plan: * Treatment: 2. O thers Notes: Diabetic Foot Care: The patient was educated on diabetes and the lower extremity. The patient was instructed to check his feet daily to report any problems or signs of infection immediately. The patient was provided written information on Diabetic Foot Care as well as the Amputation Prevention Guide. * Immunizations: Immunization record has been reviewed and updated. * Follow Up: 1 0 - 12 weeks (Reason: At-Risk Foot care, sooner if problems develop.) * Billing Information: * Visit Code: 93634 Office Visit, Est Pt., Level 3. * Procedure Codes: * Electronic signature of LISA MARTINEZ DPM on 08/10/2024 at 06:25 PM CDT Sign off status: Pending * Provider: Ellis [place] DPM Date: 0 07/24/2024 Generated for Adarsh Galarza/Rabia on: 0 08/10/2024 06:25 PM CDT History and Physical Notes * HPI (History of Present Illness) Category Sub-Category Detail Notes Category Not es HPI General care Patient presents to the office for diabetic foot care. Patient states that their nails are thickened, elongated and painful. Patient states that it is aggravated by shoe gear. Onset is gradual., Patient is taking prescription blood thinners., Date last seen by primary doctor at [facility] was April 2024., Initials LB Examination Category Sub-Category Detail Notes Category Not es Dermatologic Skin findings: Skin is warm, dr y, supple with no breaks in the skin Nail pathology: Nails 1-5 bilateral are elongated, thick, discolored, and dystrophic with subungual debris. They are painful to palpation Neurologic Gross sensation Gross sensation is dimini shed to light touch Vascular Dorsalis pedis pulse: 2/4, bilateral Edema: No edema, bilateral Capillary refill: less than 3 seconds Posterior tibial pulse: 2/4, bilateral Musculoskeletal Muscle Strength Muscle strength is 5/5 in regards to dorsiflexion, plantarflexion, inversion, and eversion in bilateral lower extremities Constitutional Constitutional The patient is a wake, alert, well developed, well groomed and well nourished
--- NOTE | 2024-08-10 18:28 | ED_ITS ---
HPI - Chest Pain General Chief Complaint: Chest Pain Stated Complaint: Left Shoulder Pain/Chest Pain Time Seen by Provider: 08/10/24 18:25 Patient presents to the [facility] with complaints of sudden-onset left- sided upper arm pain/ pressure toe began just prior to arrival at clinic. Patient reports he drove to [employer] to get topical icy Hot for the area and then noted below he started having this pressure in the left side of his chest. Patient reports he apply the icy Hot without relief of symptoms. Patient also noted he has a history of stroke and does take an 81 mg aspirin every day and did take a 325 aspirin with the pain started as well. Patient concern for something wrong his heart. Noted taking his blood pressure at home it was normal but he thought he should be evaluated. Denies nausea, indigestion, numbness, tingling, weakness, headache, dizziness, palpitations Related Data Home Medications ?Medication ?Instructions ?Recorded ?Confirmed ?Last Taken ?Type aspirin 81 mg chewable tablet 81 mg PO DAILY 03/14/19 06/15/22 Unknown History lisinopril 5 mg tablet 5 mg PO DAILY 03/14/19 06/15/22 Unknown History sertraline 50 mg tablet (Zoloft) 50 mg PO DAILY 03/14/19 06/15/22 Unknown History levothyroxine 100 mcg tablet mcg 08/10/24 Unknown History rosuvastatin 20 mg tablet mg 08/10/24 Unknown History Allergies Allergy/AdvReac Type Severity Reaction Status Date / Time No Known Allergies Allergy Verified 08/10/24 18:37 Review of Systems Constitutional: Constitutional: Reports as per HPI, Denies chills, Denies fatigue, Denies fever(s) and Denies weakness Eyes: Eyes: Reports no additional eye complaints Cardiovascular: Cardiovascular: Reports as per HPI, Reports chest pain, Denies rapid heart rate, Reports radiating jaw, neck or arm pain and Denies slow heart rate Respiratory: Respiratory: Reports as per HPI and Denies dyspnea Gastrointestinal: Gastrointestinal: Reports as per HPI, Denies heartburn, Denies nausea and Denies vomiting Genitourinary: Genitourinary: Reports as per HPI Musculoskeletal: Musculoskeletal: Reports as per HPI and Reports arthralgias Integumentary/Breasts: Skin/Breast: Reports as per HPI Neurologic: Reports as per HPI, Denies numbness and Denies weakness Psychiatric: Psychiatric: Reports no additional psychiatric complaints Endocrine: Endocrine: Reports no additional endocrine complaints Hematologic/Lymphatic: Hematologic/Lymphatic: Reports no additional hematologic/lymphatic complaints Allergic/Immunologic: Allergic/Immunologic: Reports no additional allergic/immunologic complaints [facility] Past Medical History Medical History (Updated 08/10/24 @ 18:58 by CLAU Duncan) CVA (cerebral vascular accident) Family History Family History Father Family history of glaucoma Hypertension Family history of lung cancer Mother Hypertension Asthma Family history of allergic disorder Social History Social History (Updated 02/19/24 @ 12:36 by Juani Tam APRN) Smoking status: Former smoker Alcohol intake: never Exam Const: General: healthy appearing and no acute distress Nutritional Appearance: well nourished Orientation/consciousness: patient oriented x3 Limitations: no limitations Neck: Neck: no lymphadenopathy Resp: Effort & Inspection: normal respiratory effort Auscultation: clear to auscultation bilaterally Cardio: Rate: regular rate Rhythm: regular rhythm Skin: General skin exam: normal color Rashes: no rashes Wounds: no wounds Neuro: General: patient oriented x3 Speech: normal speech Gait exam (Neuro): Normal gait present Psych: Mental Status: mental status grossly normal Affect: normal affect Attitude: cooperative Course Course Level of Care: Express Care Visit MDM - Chest Pain MDM Narrative Medical decision making narrative: spoke with patient and given his history of stroke and current symptoms would recommend follow-up in the emergency room. Patient would like to get [facility]. Report called to Bryn WHALEN for patient would like to drive himself to the hospital since his is with him. Educated patient that this is best option and he should be taken to the emergency room by ambulance. Patient declines. Differential Diagnosis Differential diagnosis: Likely stable angina, unstable angina pectoris, atypical chest pain, st elevation myocardial infarction and chest pain Medical Records Data Attestation: I reviewed the patient's medical records. ECG Data EKG #1: ECG completion date: 08/10/24 Prior ECG tracings: not available for review Ischemic changes: other (normal EKG ) EKG Interpretation: normal rate Discharge Plan Discharge Clinical Impression: Chest pain Patient Disposition: Acute Care Hospital Condition: Unstable Patient Language: Tajik Prescriptions: No Action levothyroxine 100 mcg tablet rosuvastatin 20 mg tablet lisinopril 5 mg Tablet 5 mg PO DAILY sertraline [Zoloft] 50 mg Tablet 50 mg PO DAILY aspirin 81 mg Tablet,Chewable 81 mg PO DAILY Follow-up/Referrals: UNKNOWN,DOCTOR [Primary Care Provider] - Time of Disposition: 18:58
--- NOTE | 2024-08-10 18:30 | ECG_ITS ---
Test Date: 2024-08-10 18:34:56 Measurements Intervals [place] Rate: 70 P: 26 FL: 188 QRS: 21 QRSD: 102 T: 70 QT: 382 QTc: 415 Interpretive Statements SINUS RHYTHM No previous ECG available for comparison Electronically Signed On 08-11-2024 13:40:39 CDT by Stephen Noriega M.D.
[2024-08-10 18:31] VITALS: BP 127/65; PULSE 87; RESP 20; TEMP 36.8; O2SAT 99
== END 2024-08-10 18:52 | disposition short-term general hospital (02) ==
PROVIDERS: Emergency Provider Nurse Practitioner Family
DX: R07.9 Chest pain, unspecified (principal); Z86.73 Personal history of transient ischemic attack (TIA), and cerebral infarction without residual deficits; Z79.82 Long term (current) use of aspirin; Z87.891 Personal history of nicotine dependence
CPT/HCPCS: 93005; 99213; G0463